=== PATIENT | female | born 1965 | race Asian ===

== ENCOUNTER 2025-06-24 13:45 | Emergency (ER) | payer MEDICARE, OTHER, SELFPAY ==
[2025-06-24 14:00] VITALS: BP 116/73; PULSE 83; RESP 18; TEMP 36.4; O2SAT 100
[2025-06-24 14:17] LABS: EDUAAPPEAR Cloudy; EDUABILI 1+ (Negative); EDUABLOOD 3+ (Negative); EDUACOLOR1 Dark; EDUAGLUCOSE 3+ (Negative); EDUAKETONE Trace (Negative); EDUALEUKO 1+ (Negative); EDUANITRATE Positive (Negative); EDUAPH 5.5; EDUAPROTEIN 3+ (Negative); EDUASPGRAVITY 1.020; EDUAUROBILI 1.0
--- NOTE | 2025-06-24 14:23 | ED_ITS ---
HPI - Female Genitourinary General Chief complaint: Urogenital-Female Stated complaint: urinary irritation Time Seen by Provider: 06/24/25 14:14 Source: patient and RN notes reviewed Mode of arrival: ambulatory Limitations: no limitations History of Present Illness HPI Narrative: 60-year-old female presents today with a 2 day history of dysuria, frequency, voiding small amounts. Denies fever, back pain, abdominal pain. No OTC treatment prior to arrival. No recent antibiotic use. States diabetes is under control. Related Data Home Medications ?Medication ?Instructions ?Recorded ?Confirmed ?Last Taken ?Type amlodipine 5 mg tablet mg 06/24/25 Unknown History aspirin 81 mg tablet,delayed 81 mg PO DAILY 06/24/25 Unknown History release (Adult Low Dose Aspirin) cetirizine 10 mg tablet mg 06/24/25 Unknown History dulaglutide 3 mg/0.5 mL mg subcut 06/24/25 Unknown History subcutaneous pen injector (Trulicity) empagliflozin 10 mg tablet mg 06/24/25 Unknown Histor y (Jardiance) ergocalciferol (vitamin D2) 1,250 06/24/25 Unknown H istory mcg (50,000 unit) capsule insulin glargine 100 unit/mL (3 unit subcut 06/24/25 Unknown History mL) subcutaneous pen (Lantus Solostar U-100 Insulin) insulin lispro 100 unit/mL subcut 06/24/25 Unknown Hi story subcutaneous pen lisinopril 20 mg tablet mg 06/24/25 Unknown History metformin 500 mg tablet mg 06/24/25 Unknown History metoclopramide HCl 5 mg tablet mg 06/24/25 Unknown Hi story sertraline 100 mg tablet mg 06/24/25 Unknown History Allergies Allergy/AdvReac Type Severity Reaction Status Date / Time No Known Allergies Allergy Mild Verified 06/24/25 14:05 [facility] Past Medical History Medical History (Updated 06/24/25 @ 14:27 by Kellie Sears, [employer]STATE MANAGER, [employer]OTIVE SUPERVISOR) Diabetes Comments At time of signature, I have reviewed and agree with nursing past medical, surgical, social and family history unless otherwise noted. Please see nursing chart for further information. There is no relevant family history pertinent to the presenting complaint Exam Narrative: GENERAL: Well-appearing, well-nourished, and in no acute distress. HEAD: Normocephalic, atraumatic. EYES: EOMI. No redness or drainage. Conjunctivae normal. ENT: Mucous membranes pink and moist. NECK: Normal AROM. CHEST: No respiratory distress. Clear to auscultation. HEART: Regular rate and rhythm. No murmur appreciated. ABDOMEN: Soft, nondistended, normal active bowel sounds.+mild suprapubic pressure. -CVAT EXTREMITIES: Normal range of motion. No edema. SKIN: Warm, dry, no rash. Capillary refill normal. Normal skin turgor. NEURO: No focal deficits. Alert and oriented x3. Gait steady with cane. PSYCH: Normal affect. No signs of depression or anxiety. Course Course Level of Care: Express Care Visit Vital Signs Vital signs: Vital Signs Temperature 97.5 F L 06/24/25 14:00 Pulse Rate 83 06/24/25 14:00 Respiratory Rate 18 06/24/25 14:00 Blood Pressure 116/73 06/24/25 14:00 Pulse Oximetry 100 06/24/25 14:00 Oxygen Delivery Room Air 06/24/25 14:00 Temperature 97.5 F L 06/24/25 14:00 Pulse Rate 83 06/24/25 14:00 Respiratory Rate 18 06/24/25 14:00 Blood Pressure 116/73 06/24/25 14:00 Pulse Oximetry 100 06/24/25 14:00 Oxygen Delivery Room Air 06/24/25 14:00 Reviewed MDM - Female Genitourinary MDM Narrative Medical decision making narrative: 60-year-old female presents today with a 2 day history of dysuria, frequency, voiding small amounts. Denies fever, back pain, abdominal pain. No OTC treatment prior to arrival. Upon exam, patient has mildly tender suprapubic area and no CVAT. Her urinalysis shows 3+ glucose, 1+ bilirubin, trace ketones, 3+ blood, 3+ protein, nitrite positive, 1+ leukocytes. She will be treated with Augmentin for UTI. Culture pending. Recommend azo for discomfort if needed. No systemic signs of pyelonephritis. Vital signs stable. Patient agrees with plan. Anticipatory guidance given. Differential Diagnosis Differential diagnosis: Likely urinary tract infection, cystitis and other (Pyelonephritis) Lab Data Attestation: I reviewed the patient's lab results. Labs: Lab Results 06/24/25 Range/Units 14:13 POC Urine Color Dark POC Urine Clarity Cloudy POC Urine pH 5.5 POC Ur Specif [place] 1.020 POC Urine Protein 3+ (Negative) POC Ur Glucose (UA) 3+ (Negative) POC Urine Ketones Trace (Negative) POC Urine Blood 3+ (Negative) POC Urine Nitrite Positive (Negative) POC Urine Bilirubin 1+ (Negative) POC Urine Urobilinogen 1.0 POC U Leukocyte Esteras 1+ (Negative) Critical Care Time Critical Care Time Critical Care Time: No Discharge Plan Discharge Clinical Impression: Urinary tract infection Qualifiers: Urinary tract infection type: acute cystitis Hematuria presence: with hematuria Qualified Code(s): N30.01 - Acute cystitis with hematuria Patient Disposition: Home Condition: Stable Instructions: Antibiotic Form, Urinary Tract Infection in Women (DC) Additional Instructions: Your urine shows infection today. Take Augmentin as prescribed until gone. Your urine will be sent of for a culture to identify what type of bacteria is causing your infection. If the culture shows that your medication will not get rid of your infection, you will be notified and a new antibiotic will be called in for you. If your symptoms worsen to include fever, sweats, chills, nausea, vomiting, severe abdominal or back pain, please go to the ER for further evaluation. Patient Language: Green[place]ic Prescriptions: New amoxicillin-pot clavulanate 875-125 mg tablet 1 tablet PO Q12H 7 Days Qty: 14 0RF No Action metformin 500 mg tablet cetirizine 10 mg tablet lisinopril 20 mg tablet sertraline 100 mg tablet amlodipine 5 mg tablet ergocalciferol (vitamin D2) 1,250 mcg (50,000 unit) capsule insulin lispro 100 unit/mL insulin pen SUBCUT insulin glargine [Lantus Solostar U-100 Insulin] 100 unit/mL (3 mL) insulin pen SUBCUT Jardiance 10 mg tablet Trulicity 3 mg/0.5 mL pen injector SUBCUT aspirin [Adult Low Dose Aspirin] 81 mg tablet,delayed release (DR/EC) 81 mg PO DAILY metoclopramide HCl 5 mg tablet Follow-up/Referrals: UNKNOWN,DOCTOR [Primary Care Provider] Time of Disposition: 14:28
[2025-06-24 14:25] LABS: EDUAAPPEAR Cloudy; EDUABILI 1+ (Negative); EDUABLOOD 3+ (Negative); EDUACOLOR1 Dark; EDUAGLUCOSE 3+ (Negative); EDUAKETONE Trace (Negative); EDUALEUKO 1+ (Negative); EDUANITRATE Positive (Negative); EDUAPH 5.5; EDUAPROTEIN 3+ (Negative); EDUASPGRAVITY 1.020; EDUAUROBILI 1.0
== END 2025-06-24 14:40 | disposition home or self-care (01) ==
PROVIDERS: Emergency Provider Nurse Practitioner
DX: N30.01 Acute cystitis with hematuria (principal); E11.9 Type 2 diabetes mellitus without complications; Z79.4 Long term (current) use of insulin; Z79.84 Long term (current) use of oral hypoglycemic drugs; Z79.85 Long-term (current) use of injectable non-insulin antidiabetic drugs; Z79.82 Long term (current) use of aspirin
CPT/HCPCS: 81003; 87077; 87086; 87186; 99203; G0463